=== PATIENT | male | born 1955 | race Caucasian/White ===

== ENCOUNTER 2017-09-14 05:54 | Observation (INO) | payer SELFPAY ==
[2017-09-14 07:25] LABS: BASO # 0.06 K/mm3 (0.0-2.0); BASO % 0.6 % (0.0-3.0); EOS # 0.5 (0.0-0.7); EOS % 4.4 % (1.5-5.0); GRAN # 6.99 (1.4-6.5); GRAN % 64.1 % (50.0-68.0); HEMATOCRIT 45.6 % (42.0-52.0); LYMPH # 2.5 (1.2-3.4); LYMPH % 23.3 % (22.0-35.0); MEAN CELL VOLUME 80.6 fl (80.0-105.0); MEAN CORPUSCULAR HEMOGLOBIN 27.4 pg (25.0-35.0); MEAN PLATELET VOLUME 10.5 fl (7.0-11.0); MONO # 0.8 (0.1-0.6); MONO % 7.6 % (1.0-6.0); RED CELL DISTRIBUTION WIDTH 14.3 % (11.5-14.5); WHITE BLOOD COUNT 10.9 10^3/ul (4.5-11.0)
--- NOTE | 2017-09-14 07:35 | ED PDOC ---
Arrival/HPI - General Chief Complaint: Dizziness/Lightheaded Time Seen by Provider: 09/14/17 07:34 Historian: Patient - History of Present Illness Narrative History of Present Illness (Text): 09/14/17 07:45 James Lopez is a 62 year old male, whose past medical history includes hypertension, and diabetes, who presents to the emergency department complaining of dizziness. Patient reports this symptoms began six days ago in the invasive physician, then resolved. Last night when he was going to the bathroom it returned, stating that he felt dizzy and "like I was going to pass out" and "like I couldn't get my words out". Patient also states he has had intermittent blurred vision. Denies headache. Denies chest pain or shortness of breath or abdominal pain. Time/Duration: < week (6 days ago) Symptom Onset: Sudden Symptom Course: Unchanged Activities at Onset: Rest Context: Home Past Medical History - Provider Review Nursing Documentation Reviewed: Yes - Cardiac Hx Cardiac Disorders: Yes Hx Hypertension: Yes - Pulmonary Hx Respiratory Disorders: No - Neurological Hx Neurological Disorder: Yes Hx Vertigo: Yes - HEENT Hx HEENT Disorder: No - Renal Hx Renal Disorder: No - Endocrine/Metabolic Hx Endocrine Disorders: Yes Hx Diabetes Mellitus Type 2: Yes - Hematological/Oncological Hx Blood Disorders: No - Integumentary Hx Dermatological Disorder: No - Musculoskeletal/Rheumatological Hx Musculoskeletal Disorders: No - Gastrointestinal Hx Gastrointestinal Disorders: No - Genitourinary/Gynecological Hx Genitourinary Disorders: No - Psychiatric Hx Psychophysiologic Disorder: No Hx Substance Use: No Family/Social History - Physician Review Nursing Documentation Reviewed: Yes Family/Social History: Unknown Family HX Smoking Status: Never Smoked Hx Alcohol Use: No Hx Substance Use: No Allergies/Home Meds Allergies/Adverse Reactions: Allergies No Known Allergies Allergy (Verified 09/14/17 06:02) Home Medications: Home Meds Medication Instructions Recorded Confirmed Aspirin [Adult Low Dose Aspirin EC] 81 mg PO DAILY 09/14/17 09/14/17 Atenolol [Tenormin] 50 mg PO DAILY 09/14/17 09/14/17 Diclofenac [Diclofenac Sodium] 100 mg PO PRN PRN 09/14/17 09/14/17 Metformin HCl [Glucophage] 1,000 mg PO DAILY 09/14/17 09/14/17 Nifedipine [Nifedipine ER] 20 mg PO DAILY 09/14/17 09/14/17 Prochlorperazine Maleate 5 mg PO BID 09/14/17 09/14/17 [Compazine] Simvastatin [Zocor] 40 mg PO DAILY 09/14/17 09/14/17 Review of Systems - Review of Systems Constitutional: absent: Fevers Eyes: Vision Changes Respiratory: absent: SOB Cardiovascular: absent: Chest Pain, [place] Gastrointestinal: absent: Abdominal Pain, Diarrhea, Nausea, Vomiting Genitourinary Male: absent: Dysuria Musculoskeletal: absent: Back Pain Neurological: Dizziness, Speech Changes. absent: Headache Endocrine: absent: Polydipsia Physical Exam - Physical Exam Narrative Physical Exam (Text): 09/14/17 Head: Atraumatic. Normocephalic. Eyes: PERRL. EOMI. Conjunctivae are not pale. ENT: Mucous membranes are moist and intact. Oropharynx is clear and symmetric. Neck: Supple. Full ROM. No JVD. No lymphadenopathy. No carotid bruits. Cardiovascular: Regular rate. Regular rhythm. No murmurs, rubs, or gallops. Distal pulses are 2+ and symmetric. Pulmonary/Chest: No evidence of respiratory distress. Clear to auscultation bilaterally. No wheezing, rales or rhonchi. Abdominal: Soft and non-distended. There is no tenderness. No rebound, guarding, or rigidity. No organomegaly. Good bowel sounds. Back: No CVA tenderness. Extremities: No edema. No cyanosis. No clubbing. Full range of motion in all extremities. No calf tenderness. Skin: Skin is warm and dry. No petechiae. No purpura. Neurological: Alert, awake, and oriented to person, place, time, and situation. Normal speech. Visual acuity and visual walton intact. No pronator drift. Steady gait. Reflexes intact. Motor and sensory itnact. Psychiatric: Good eye contact. Normal interaction, affect, and behavior. Vital Signs Reviewed: Yes Vital Signs Temp Pulse Resp BP Pulse Ox 09/14/17 11:00 98.6 F 80 18 118/86 99 09/14/17 09:00 79 18 129/79 99 09/14/17 07:38 77 18 141/89 99 09/14/17 06:00 98.3 F 83 16 145/94 H 99 Temperature: Afebrile Pulse: Regular Respiratory Rate: Normal Appearance: Positive for: Well-Appearing, Non-Toxic, Comfortable Pain Distress: None Mental Status: Positive for: Alert and Oriented X 3 Medical Decision Making ED Course and Treatment: 09/14/17 Impression: 62 year old male with dizziness. Differential Diagnosis included but are not limited to: Vertigo Plan: -- EKG -- Chest X-ray -- CT Head -- Labs -- Reassess and disposition Progress Notes: Patient on exam states dizziness resolved. No chest pain. No exertional symptoms. Currently dizziness not reproducible with head movements. No fever. He reports episode of feeling as if he may pass out, although currently not orthostatic. He describes brief episode this AM prior to arrival of having difficulty speaking, but this has resolved. Intermittent blurred vision reported , although patient is currently intact with her visual acuity and visual walton. 09/14/17 09:00 CT Head: Creator : Simon Cook MD FINDINGS: HEMORRHAGE: No intracranial hemorrhage. BRAIN: No mass effect or edema. No atrophy or chronic microvascular ischemic changes. VENTRICLES: Unremarkable. No hydrocephalus. CALVARIUM: Unremarkable. PARANASAL SINUSES: Mild to moderate maxillary sinuses mucosal thickening and mild ethmoidal and sphenoid sinuses mucosal thickening noted. MASTOID AIR CELLS: Unremarkable as visualized. No inflammatory changes. OTHER FINDINGS: None. IMPRESSION: Socu-zj-nmyzwhpm sinuses mucosal thickening. No evidence of acute intracranial hemorrhage intracranial collection mass effect or midline shift. 09/14/17 10:50 Chest X-ray: Creator : Simon Cook MD FINDINGS: LUNGS: No active pulmonary disease. PLEURA: No significant pleural effusion identified, no pneumothorax apparent. CARDIOVASCULAR: Normal. OSSEOUS STRUCTURES: No significant abnormalities. VISUALIZED UPPER ABDOMEN: Normal. OTHER FINDINGS: None. IMPRESSION: No active disease. Re-exam, no chest pain or headache. No focal deficits. Will admit to telemetry observation for neuro monitoring, eval for near syncope ? tia vs. vertigo. 09/14/17 17:23 - Lab Interpretations Lab Results: 09/14/17 07:05 09/14/17 07:30 Lab Results 09/14/17 07:30: Triglycerides 125, Cholesterol 160, LDL Cholesterol Direct 104, HDL Cholesterol 40 09/14/17 07:30: Sodium 138, Potassium 5.5 H, Chloride 100, Carbon Dioxide 28, Anion Gap 16, BUN 23 H, Creatinine 1.3, Est GFR ( Amer) > 60, Est GFR ( Non-Af Amer) 56, Random Glucose 185 H, Calcium 9.9, Total Bilirubin 0.9, AST 30 , ALT 43, Alkaline Phosphatase 96, Lactate Dehydrogenase 387, Total Creatine Kinase 136, Troponin I < 0.01, Total Protein 8.2, Albumin 4.7, Globulin 3.5, Albumin/Globulin Ratio 1.3 09/14/17 07:30: PT 11.8, INR 1.07, APTT 32.6 09/14/17 07:05: WBC 10.9, RBC 5.66, Hgb 15.5, Hct 45.6, MCV 80.6, MCH 27.4, MCHC 34.0, RDW 14.3, Plt Count 285, MPV 10.5, Gran % 64.1, Lymph % (Auto) 23.3, Potter % (Auto) 7.6 H, Eos % (Auto) 4.4, Baso % (Auto) 0.6, Gran # 6.99 H, Lymph # 2.5, Potter # 0.8 H, Eos # 0.5, Baso # 0.06 I have reviewed the lab results: Yes - RAD Interpretation Radiology Orders: 09/14/17 07:13 CXR [CHEST PORTABLE] [RAD] Stat 09/14/17 07:44 HEAD W/O CONTRAST [CT] Stat Invasive Physician: Radiologist - EKG Interpretation Interpreted by ED Physician: Yes Type: 12 lead EKG - Medication Orders Current Medication Orders: Aspirin (Ecotrin) 81 mg PO DAILY [facility] Atenolol (Tenormin) 50 mg PO DAILY [facility] Atorvastatin Calcium (Lipitor) 40 mg PO DIN [facility] Metformin HCl (Glucophage) 1,000 mg PO DAILY [facility] Nifedipine (Procardia Xl) 30 mg PO DAILY [facility] Prochlorperazine (Compazine Tab) 5 mg PO BID [facility] Discontinued Medications Aspirin (Aspirin Chewable) 81 mg PO STAT [facility] Stop: 09/14/17 10:32 Last Admin: 09/14/17 11:29 Dose: 81 mg NIHSS Scale ([place]) - How Severe is the Stoke Baseline Level of Consciousness: 0=Alert LOC to Questions: 0=Both comments correct LOC to commands: 0=Obeys both correctly Best Gaze: 0=Normal Visual: 0=No visual loss Facial: 0=Normal Motor Arm - Left: 0=No drift Motor Arm - Right: 0=No drift Motor Leg - Left: 0=No drift Motor Leg - Right: 0=No drift Limb Ataxia: 0=Absent Sensory: 0=Normal Best Language: 0=No aphasia Dysarthia: 0=Normal articulation Extinction & Inattention (Neglect): 0=Normal, no object Score: 0 Risk Level: No Stroke Risk rTPA Inclusion/Exclusion - Refusal of Treatment Patient Refused Treatment: Yes - Inclusion Criteria for Altepase Patient is 18 years or Older: Yes Time of Onset is Well Established to be Less Than 270 Minute Before Treatment Would Begin: No - Warning to TPA With Conditions Following Conditions Weighed Against Anticipated Benefit: Yes Condition: Stroke Serevity Too Mild, Rapid Improvement, Age Greater Than 75 years - Scribe Statement The provider has reviewed the documentation as recorded by the Scribe Marleny Jerry Provider Scribe Attestation: All medical record entries made by the Scribe were at my direction and personally dictated by me. I have reviewed the chart and agree that the record accurately reflects my personal performance of the history, physical exam, medical decision making, and the department course for this patient. I have also personally directed, reviewed, and agree with the discharge instructions and disposition. Disposition/Present on Arrival - Present on Arrival Any Indicators Present on Arrival: No History of DVT/PE: No History of Uncontrolled Diabetes: No Urinary Catheter: No History of Decub. Ulcer: No History Surgical Site Infection Following: None - Disposition Have Diagnosis and Disposition been Completed?: Yes Diagnosis: Dizziness, TIA (transient ischemic attack), Near syncope Disposition: HOSPITALIZED Disposition Time: 10:00 Patient Plan: Admission, Observation, Telemetry Condition: FAIR
[2017-09-14 08:00] LABS: ALB/GLOB RATIO 1.3 (1.1-1.8); ALKALINE PHOSPHATASE 96 U/L (38-126); ALT/SGPT 43 U/L (7-56); AST/SGOT 30 U/L (17-59); BILIRUBIN,TOTAL 0.9 mg/dL (0.2-1.3); BLOOD UREA NITROGEN 23 mg/dL (7-21); CALCIUM 9.9 mg/dL (8.4-10.5); CARBON DIOXIDE 28 mmol/L (21-33); CHLORIDE 100 mmol/L (98-107); GFR AFRICAN-AMERICAN > 60; GLUCOSE,RANDOM 185 mg/dL (70-110); INR 1.07 (0.93-1.08); PARTIAL THROMBOPLASTIN TIME 32.6 Seconds (25.1-36.5); POTASSIUM 5.5 mmol/L (3.6-5.0); SODIUM 138 mmol/L (132-148); TOTAL PROTEIN 8.2 g/dL (5.8-8.3)
[2017-09-14 08:29] LABS: TROPONIN I < 0.01 ng/mL
--- NOTE | 2017-09-14 08:29 | CT ---
PROCEDURE: CT HEAD WITHOUT CONTRAST. HISTORY: dizziness COMPARISON: None available. TECHNIQUE: Axial computed tomography images were obtained through the head/brain without intravenous contrast. Radiation dose: Total exam DLP = 775.01 mGy-cm. This CT exam was performed using one or more of the following dose reduction techniques: Automated exposure control, adjustment of the mA and/or kV according to patient size, and/or use of iterative reconstruction technique. FINDINGS: HEMORRHAGE: No intracranial hemorrhage. BRAIN: No mass effect or edema. No atrophy or chronic microvascular ischemic changes. VENTRICLES: Unremarkable. No hydrocephalus. CALVARIUM: Unremarkable. PARANASAL SINUSES: Mild to moderate maxillary sinuses mucosal thickening and mild ethmoidal and sphenoid sinuses mucosal thickening noted. MASTOID AIR CELLS: Unremarkable as visualized. No inflammatory changes. OTHER FINDINGS: None. IMPRESSION: Gtzo-[id number] sinuses mucosal thickening. No evidence of acute intracranial hemorrhage intracranial collection mass effect or midline shift.
--- NOTE | 2017-09-14 10:41 | RAD ---
HISTORY: Dizziness COMPARISON: No prior. FINDINGS: LUNGS: No active pulmonary disease. PLEURA: No significant pleural effusion identified, no pneumothorax apparent. CARDIOVASCULAR: Normal. OSSEOUS STRUCTURES: No significant abnormalities. VISUALIZED UPPER ABDOMEN: Normal. OTHER FINDINGS: None. IMPRESSION: No active disease.
[2017-09-14 12:14] VITALS: BMI 26.6
[2017-09-14 12:24] LABS: CHOLESTEROL 160 mg/dL (130-200)
--- NOTE | 2017-09-14 16:38 | CP.PCM.HP ---
<Kamran Lee - Last Filed: 09/15/17 04:18> History of Present Illness - History of Present Illness History of Present Illness: Patient is a 62 year old male visiting from [facility] with past medical history of hypertension, NIDDM, vertigo who presents to [facility] on 1216 with complaints of dizziness which started on Friday. Patient states he was initially going to go to the ED that day but the next morning it had subsided. However he states that later that afternoon on 09/08/17 his symptoms returned. Throughout the night he states it worsened noticeably when he awoke to use the bathroom. As he was walking he felt he was going to pass out and fell to the ground but was able to break his fall and prevent head injury with his hands. Throughout the week patient continued to experience the dizziness. Dizziness is noted to be exacerbated when laying down, moving head side to side when changing positions throughout sleep, with especially the left side. Patient admits to occasional blurry vision, one episode of diarrhea throughout the course of the week as well as nausea. Denies vomiting, fevers, chills, weakness, cough, shortness of breath, chest pain, cough. PMD: [place]verseas ([facility]) Past Surgical history: None Past medical history: stated above Medications: Metformin 1000 qD, Dymacol 60 mg ER qD, Atenolol 50 mg qD, Amphetamine 20 mg qD, Aspirin 81 mg qD, Stemetil 5mg BID Family history: non-contributory Allergies: :NKDA Present on Admission - Present on Admission Any Indicators Present on Admission: Yes Review of Systems - Constitutional Constitutional: absent: Anorexia, Chills, Fever, Malaise, Weight Loss - EENT Eyes: Blurred Vision, Change in Vision. absent: Decreased Night Vision, Diplopia Ears: absent: Ear Discharge, Ear Pain Nose/Mouth/Throat: absent: Nasal Congestion, Nasal Discharge - Cardiovascular Cardiovascular: absent: Chest Pain, Leg Edema - Respiratory Respiratory: absent: Dyspnea, Wheezing - Gastrointestinal Gastrointestinal: absent: Belching, Bloating - Genitourinary Genitourinary: absent: Difficulty Urinating, Dysuria - Musculoskeletal Musculoskeletal: absent: Atrophy, Deformity, Joint Swelling - Integumentary Integumentary: absent: Acne, Alopecia - Neurological Neurological: absent: Abnormal Hearing, Abnormal Movements, Burning Sensations - Psychiatric Psychiatric: absent: Anxiety, Confusion - Endocrine Endocrine: absent: Fatigue, Flushing - Hematologic/Lymphatic Hematologic: absent: Easy Bleeding, Easy Bruising Past Patient History - Past Social History Smoking Status: Never Smoked - CARDIAC Hx Cardiac Disorders: Yes Hx Hypertension: Yes - PULMONARY Hx Respiratory Disorders: No - NEUROLOGICAL Hx Neurological Disorder: Yes - HEENT Hx HEENT Problems: No - RENAL Hx Chronic Kidney Disease: No - ENDOCRINE/METABOLIC Hx Endocrine Disorders: Yes Hx Diabetes Mellitus Type 2: Yes - HEMATOLOGICAL/ONCOLOGICAL Hx Blood Disorders: No - INTEGUMENTARY Hx Dermatological Problems: No - MUSCULOSKELETAL/RHEUMATOLOGICAL Hx Falls: No - GASTROINTESTINAL Hx Gastrointestinal Disorders: No - GENITOURINARY/GYNECOLOGICAL Hx Genitourinary Disorders: No - PSYCHIATRIC Hx Psychophysiologic Disorder: No Hx Substance Use: No - SURGICAL HISTORY Hx Surgeries: No Meds Allergies/Adverse Reactions: Allergies Allergy/AdvReac Type Severity Reaction Status Date / Time No Known Allergies Allergy Verified 09/14/17 06:02 Physical Exam - Constitutional Appears: Non-toxic, In Acute Distress - Head Exam Head Exam: ATRAUMATIC, NORMAL INSPECTION, NORMOCEPHALIC - Eye Exam Eye Exam: EOMI, Normal appearance Pupil Exam: NORMAL ACCOMODATION - ENT Exam ENT Exam: Mucous Membranes Moist, Normal Exam - Neck Exam Neck exam: Positive for: Full Rom, Normal Inspection. Negative for: Lymphadenopathy, Tenderness - Respiratory Exam Respiratory Exam: Clear to Auscultation Bilateral, NORMAL BREATHING PATTERN. absent: Rhonchi, Wheezes, Stridor - Cardiovascular Exam Cardiovascular Exam: REGULAR RHYTHM, +S1, +S2 - GI/Abdominal Exam GI & Abdominal Exam: Normal Bowel Sounds, Soft - Extremities Exam Extremities exam: Positive for: normal inspection. Negative for: calf tenderness, pedal pulses present - Back Exam Back exam: FULL ROM. absent: rash noted - Neurological Exam Neurological exam: Alert, CN II-XII Intact, Oriented x3 Additional comments: Didier-halllpike positive - negative focal neurological deficits - Psychiatric Exam Psychiatric exam: Normal Affect, Normal Mood - Skin Skin Exam: Intact, Normal Color, Warm Results - Vital Signs Recent Vital Signs: Last Vital Signs Temp 98.6 F 09/14/17 12:09 Pulse 53 L 09/14/17 14:00 Resp 18 09/14/17 12:09 BP 118/86 09/14/17 12:09 Pulse Ox 99 09/14/17 11:00 - Labs Result Diagrams: 09/14/17 07:05 09/14/17 07:30 Assessment & Plan - Assessment and Plan (Free Text) Assessment: 62 year old male past medical history of hypertension, vertigo, NIDDM presenting with Vertigo Plan: 1. Dizziness due to BPPV vs. Orthostatic Hypotension vs. Valvular etiology - Prochloperazine - CT head reveals no abnormalities - Carotid US ordered - Dalton-Hallpike positive - Instructed on Deangelo maneuver - Orthostatics - Echocardiogram - Neurology consulted - Neuro checks, aspiration precautions, elevate head of bed 2. Hypertension - Atenolol - Nifedipine - BP stable, continue to monitor 3. NIDDM - Metformin - HgA1c ordered - ISS DVT/GI prophylaxis SCDs/Pepcid Case reviewed and discussed with Dr. Hayden <Michael Hayden - Last Filed: 09/17/17 12:32> Results - Vital Signs Recent Vital Signs: Last Vital Signs Temp 98.9 F 09/16/17 12:00 Pulse 63 09/16/17 14:00 Resp 20 09/16/17 12:00 BP 135/85 09/16/17 12:00 Pulse Ox 93 L 09/16/17 05:54 - Labs Result Diagrams: 09/15/17 05:30 09/15/17 05:30 Attending/Attestation - Attestation I have personally seen and examined this patient.: Yes I have fully participated in the care of the patient.: Yes I have reviewed all pertinent clinical information: Yes Notes (Text): 09/17/17 12:29 62 year old male with past medical history of hypertension and diabetes who presented with complaint of dizziness; likely BPPV. CT head was reviewed. Neurology and PT evaluations are requested. Will also check carotid dopplers and echocardiogram. Continue with home medications for hypertension and diabetes. Michael Hayden MD Hospitalist.
[2017-09-15 06:31] LABS: BASO # 0.06 K/mm3 (0.0-2.0); BASO % 0.7 % (0.0-3.0); EOS # 0.4 (0.0-0.7); EOS % 4.5 % (1.5-5.0); GRAN # 3.96 (1.4-6.5); GRAN % 46.2 % (50.0-68.0); HEMATOCRIT 45.8 % (42.0-52.0); LYMPH # 3.2 (1.2-3.4); LYMPH % 37.8 % (22.0-35.0); MEAN CELL VOLUME 81.3 fl (80.0-105.0); MEAN CORPUSCULAR HGB CONC 33.2 g/dl (31.0-37.0); MONO # 0.9 (0.1-0.6); MONO % 10.8 % (1.0-6.0); RED CELL DISTRIBUTION WIDTH 14.4 % (11.5-14.5); WHITE BLOOD COUNT 8.6 10^3/ul (4.5-11.0)
[2017-09-15 06:49] LABS: ALB/GLOB RATIO 1.3 (1.1-1.8); ALKALINE PHOSPHATASE 89 U/L (38-126); ALT/SGPT 36 U/L (7-56); AST/SGOT 27 U/L (17-59); BILIRUBIN,TOTAL 0.9 mg/dL (0.2-1.3); BLOOD UREA NITROGEN 24 mg/dL (7-21); CALCIUM 9.6 mg/dL (8.4-10.5); CARBON DIOXIDE 27 mmol/L (21-33); CHLORIDE 104 mmol/L (98-107); GFR AFRICAN-AMERICAN > 60; GLUCOSE,RANDOM 128 mg/dL (70-110); SODIUM 141 mmol/L (132-148); TOTAL PROTEIN 7.7 g/dL (5.8-8.3)
[2017-09-15 06:57] LABS: POTASSIUM 4.2 mmol/L (3.6-5.0)
--- NOTE | 2017-09-15 08:59 | US ---
PROCEDURE: Bilateral carotid artery duplex ultrasound HISTORY: Carotid stenosis dizziness PHYSICIAN(S): Ghassan Herrera MD. TECHNIQUE: Duplex sonography and color-flow Doppler were used to evaluate the carotid bifurcations and limited segments of the vertebral arteries bilaterally. FINDINGS: There is mild smooth heterogeneous plaque noted at the carotid bifurcations bilaterally. The peak systolic velocity in the proximal right internal carotid artery is 72 cm/sec. This corresponds to a 20 to 39% proximal right ICA stenosis. Normal systolic velocities are noted in the proximal right external carotid artery. There is antegrade flow in the right vertebral artery. The peak systolic velocity in the proximal left internal carotid artery is 89 cm/sec. This corresponds to a 20 to 39% proximal left ICA stenosis. Normal systolic velocities are noted in the proximal left external carotid artery. There is antegrade flow in the left vertebral artery. IMPRESSION: 1. Bilateral 20-39% proximal ICA stenoses. 2. Antegrade flow in both vertebral arteries.
[2017-09-15] MEDS: NIFEdipine 30 mg ER Tab PO SCH (09:29)
[2017-09-15] MEDS ORDERED: NIFEdipine 30 mg ER Tab PO SCH (10:00)
--- NOTE | 2017-09-15 10:20 | CARD ---
APPROVED REPORT EKG Measurement Heart [id number] <Conclusion> Normal sinus rhythm Possible Left atrial enlargement Right bundle branch block Left anterior fascicular block Bifascicular block Abnormal ECG
[2017-09-15] MEDS ORDERED: Iodixanol 320 MG/ML 100 ML BOTTLE IV ONE (11:39)
--- NOTE | 2017-09-15 12:46 | CT ---
PROCEDURE: CT Angiography of the neck with contrast HISTORY: syncope COMPARISON: None available. TECHNIQUE: Contiguous axial images of the neck were obtained from the level of the skull-base to the superior mediastinum in the arteriographic phase of enhancement. Coronal and sagittal reformats or also generated. IV contrast dose: 100 cc of Visipaque Radiation Dose - DLP: 498 mGy-cm This CT exam was performed using one or more of the following dose reduction techniques: Automated exposure control, adjustment of the mA and/or kV according to patient size, and/or use of iterative reconstruction technique. FINDINGS: RIGHT CAROTID ARTERIES: Common Carotid Artery: Normal. Carotid Bifurcation: Small calcified plaques Internal Carotid Artery:Normal. External Carotid Artery (proximal branches): Normal. LEFT CAROTID ARTERIES: Common Carotid Artery: Normal. Carotid Bifurcation: Small calcified plaques Internal Carotid Artery:Normal. External Carotid Artery (proximal branches): Normal. VERTEBRAL ARTERIES: Right Vertebral Artery: Normal. Left Vertebral Artery: Normal. OTHER FINDINGS: None. IMPRESSION: Normal CT Angiography of the neck. PROCEDURE: CT Angiography of the Brain. HISTORY: syncope COMPARISON: None available. TECHNIQUE: CT angiography of the intracranial arteries was performed. Coronal and sagittal maximum intensity projection reformated images were generated. This CT exam was performed using one or more of the following dose reduction techniques: Automated exposure control, adjustment of the mA and/or kV according to patient size, and/or use of iterative reconstruction technique. FINDINGS: INTERNAL CEREBRAL ARTERIES: Unremarkable. The skull base, petrous, cavernous and supraclinoid segments are bilaterally widely patent. ANTERIOR CEREBRAL ARTERIES: Unremarkable. A1 and A2 segments are widely patent. Smaller distal branches unremarkable, as visualized. MIDDLE CEREBRAL ARTERIES: Unremarkable. M1 and M2 segments are widely patent. Perisylvian branches grossly symmetric. POSTERIOR CIRCULATION: Basilar Artery: Unremarkable. Distal Vertebral Arteries: Unremarkable. Posterior Cerebral Arteries: Unremarkable. Posterior Inferior Cerebellar Arteries: Unremarkable. ANEURYSM/ VASCULAR MALFORMATIONS: None. OTHER FINDINGS: There is opacification of the right maxillary sinus and mucosal thickening in the left maxillary IMPRESSION: Unremarkable CT Angiography of the Brain.
--- NOTE | 2017-09-15 13:19 | CP.PCM.CON ---
History of Present Illness - History of Present Illness History of Present Illness: Mr. Lopez is a 62-year-old man with a past medical history of hypertension, NIDDM and previous episodes of vertigo who presented to the ED complaining of dizziness, nausea and feeling unsteady with head movement to the left. He states that he feels unsafe due to these feelings of spinning very quickly that also come on when he is driving. He denies hearing loss, tinnitus, fullness in the ears, loss of consciousness or syncope. He denied having gait instability, weakness or sensory changes. He denied any visual changes. Review of Systems - Review of Systems All systems: reviewed and no additional remarkable complaints except Past Patient History - Past Social History Smoking Status: Never Smoked - CARDIAC Hx Cardiac Disorders: Yes Hx Hypertension: Yes - PULMONARY Hx Respiratory Disorders: No - NEUROLOGICAL Hx Neurological Disorder: Yes - HEENT Hx HEENT Problems: No - RENAL Hx Chronic Kidney Disease: No - ENDOCRINE/METABOLIC Hx Endocrine Disorders: Yes Hx Diabetes Mellitus Type 2: Yes - HEMATOLOGICAL/ONCOLOGICAL Hx Blood Disorders: No - INTEGUMENTARY Hx Dermatological Problems: No - MUSCULOSKELETAL/RHEUMATOLOGICAL Hx Falls: No - GASTROINTESTINAL Hx Gastrointestinal Disorders: No - GENITOURINARY/GYNECOLOGICAL Hx Genitourinary Disorders: No - PSYCHIATRIC Hx Psychophysiologic Disorder: No Hx Substance Use: No - SURGICAL HISTORY Hx Surgeries: No Meds Allergies/Adverse Reactions: Allergies Allergy/AdvReac Type Severity Reaction Status Date / Time No Known Allergies Allergy Verified 09/14/17 06:02 - Medications Medications: Current Medications Aspirin (Ecotrin) 81 mg PO DAILY [facility] Last Admin: 09/15/17 09:28 Dose: 81 mg Atenolol (Tenormin) 50 mg PO DAILY [facility] Last Admin: 09/15/17 09:29 Dose: 50 mg Atorvastatin Calcium (Lipitor) 40 mg PO DIN [facility] Famotidine (Pepcid) 20 mg PO 1000,2200 [facility] Last Admin: 09/15/17 09:28 Dose: 20 mg Metformin HCl (Glucophage) 1,000 mg PO DAILY [facility] Last Admin: 09/15/17 09:28 Dose: 1,000 mg Nifedipine (Procardia Xl) 30 mg PO DAILY [facility] Last Admin: 09/15/17 09:29 Dose: 30 mg Prochlorperazine (Compazine Tab) 5 mg PO BID [facility] Last Admin: 09/15/17 09:28 Dose: 5 mg Physical Exam - Constitutional Appears: Well - Head Exam Head Exam: ATRAUMATIC, NORMAL INSPECTION, NORMOCEPHALIC - Eye Exam Eye Exam: EOMI, Normal appearance, PERRL - ENT Exam ENT Exam: Mucous Membranes Moist, Normal Exam - Neck Exam Neck exam: Positive for: Normal Inspection - Respiratory Exam Respiratory Exam: Clear to Auscultation Bilateral, NORMAL BREATHING PATTERN - Cardiovascular Exam Cardiovascular Exam: REGULAR RHYTHM, +S1, +S2 - GI/Abdominal Exam GI & Abdominal Exam: Normal Bowel Sounds, Soft. absent: Tenderness - Rectal Exam Rectal Exam: Deferred - Neurological Exam Neurological exam: Alert, CN II-XII Intact, Normal Gait, Oriented x3, Reflexes Normal Additional comments: Left side beating nystagmus on left lateral gaze. - Psychiatric Exam Psychiatric exam: Normal Affect, Normal Mood - Skin Skin Exam: Dry, Intact, Normal Color, Warm Results - Vital Signs Recent Vital Signs: Last Vital Signs Temp 98.2 F 09/15/17 12:00 Pulse 65 09/15/17 12:00 Resp 20 09/15/17 12:00 BP 131/88 09/15/17 12:00 Pulse Ox 97 09/15/17 06:00 - Labs Result Diagrams: 09/15/17 05:30 09/15/17 05:30 Labs: Laboratory Results - last 24 hr 09/14/17 09/14/17 09/15/17 16:39 21:45 02:22 WBC RBC Hgb Hct MCV MCH MCHC RDW Plt Count MPV Gran % Lymph % (Auto) Hardee % (Auto) Eos % (Auto) Baso % (Auto) Gran # Lymph # Hardee # Eos # Baso # Sodium Potassium Chloride Carbon Dioxide Anion Gap BUN Creatinine Est GFR ( Amer) Est GFR (Non-Af Amer) POC Glucose (mg/dL) 129 H 87 181 H Random Glucose Calcium Total Bilirubin AST ALT Alkaline Phosphatase Total Protein Albumin Globulin Albumin/Globulin Ratio 09/15/17 09/15/17 09/15/17 05:30 05:30 07:25 WBC 8.6 D RBC 5.63 Hgb 15.2 Hct 45.8 MCV 81.3 MCH 27.0 MCHC 33.2 RDW 14.4 Plt Count 272 MPV 10.0 Gran % 46.2 L Lymph % (Auto) 37.8 H Hardee % (Auto) 10.8 H Eos % (Auto) 4.5 Baso % (Auto) 0.7 Gran # 3.96 Lymph # 3.2 Hardee # 0.9 H Eos # 0.4 Baso # 0.06 Sodium 141 Potassium 4.2 Chloride 104 Carbon Dioxide 27 Anion Gap 14 BUN 24 H Creatinine 1.3 Est GFR ( Amer) > 60 Est GFR (Non-Af Amer) 56 POC Glucose (mg/dL) 129 H Random Glucose 128 H Calcium 9.6 Total Bilirubin 0.9 AST 27 ALT 36 Alkaline Phosphatase 89 Total Protein 7.7 Albumin 4.3 Globulin 3.4 Albumin/Globulin Ratio 1.3 Assessment & Plan (1) Benign paroxysmal positional vertigo Assessment and Plan: Based on the history and exam, the patient has BPPV. I recommend the followin. Vestibular therapy 2. CTA of the head/neck to rule out VBI 3. Telemetry 4. Valium 2 mg Q12 for symptomatic relief PRN 5. PT/OT 6. Fluids 7. MRI of the brain without contrast Thank you. Status: Acute Priority: High
[2017-09-15] MEDS ORDERED: levETIRAcetam 500mg IVPB 500 MG/100 ML BAG IV SCH (13:30)
--- NOTE | 2017-09-15 15:23 | CP.PCM.DIS ---
<Chip Handley - Last Filed: 09/16/17 15:42> Provider - Provider Date of Admission: 09/14/17 10:32 Attending physician: Yves Kerr MD Primary care physician: NO PRIMARY CARE PROVIDER Consults: Neuro: Korya Time Spent in preparation of Discharge (in minutes): 45 Hospital Course - Lab Results Lab Results: Most Recent Lab Values WBC 8.6 10^3/ul (4.5-11.0) D 09/15/17 05:30 RBC 5.63 10^6/uL (3.5-6.1) 09/15/17 05:30 Hgb 15.2 g/dL (14.0-18.0) 09/15/17 05:30 Hct 45.8 % (42.0-52.0) 09/15/17 05:30 MCV 81.3 fl (80.0-105.0) 09/15/17 05:30 MCH 27.0 pg (25.0-35.0) 09/15/17 05:30 MCHC 33.2 g/dl (31.0-37.0) 09/15/17 05:30 RDW 14.4 % (11.5-14.5) 09/15/17 05:30 Plt Count 272 10^3/uL (120.0-450.0) 09/15/17 05:30 MPV 10.0 fl (7.0-11.0) 09/15/17 05:30 Gran % 46.2 % (50.0-68.0) L 09/15/17 05:30 Lymph % (Auto) 37.8 % (22.0-35.0) H 09/15/17 05:30 Miner % (Auto) 10.8 % (1.0-6.0) H 09/15/17 05:30 Eos % (Auto) 4.5 % (1.5-5.0) 09/15/17 05:30 Baso % (Auto) 0.7 % (0.0-3.0) 09/15/17 05:30 Gran # 3.96 (1.4-6.5) 09/15/17 05:30 Lymph # 3.2 (1.2-3.4) 09/15/17 05:30 Miner # 0.9 (0.1-0.6) H 09/15/17 05:30 Eos # 0.4 (0.0-0.7) 09/15/17 05:30 Baso # 0.06 K/mm3 (0.0-2.0) 09/15/17 05:30 PT 11.8 SECONDS (9.4-12.5) 09/14/17 07:30 INR 1.07 (0.93-1.08) 09/14/17 07:30 APTT 32.6 Seconds (25.1-36.5) 09/14/17 07:30 Sodium 141 mmol/L (132-148) 09/15/17 05:30 Potassium 4.2 mmol/L (3.6-5.0) 09/15/17 05:30 Chloride 104 mmol/L (98-107) 09/15/17 05:30 Carbon Dioxide 27 mmol/L (21-33) 09/15/17 05:30 Anion Gap 14 (10-20) 09/15/17 05:30 BUN 24 mg/dL (7-21) H 09/15/17 05:30 Creatinine 1.3 mg/dL (0.8-1.5) 09/15/17 05:30 Est GFR ( Amer) > 60 09/15/17 05:30 Est GFR (Non-Af Amer) 56 09/15/17 05:30 POC Glucose (mg/dL) 217 mg/dL (65-110) H 09/15/17 11:13 Random Glucose 128 mg/dL (70-110) H 09/15/17 05:30 Hemoglobin A1c 7.1 % (4.2-6.5) H 09/14/17 07:30 Calcium 9.6 mg/dL (8.4-10.5) 09/15/17 05:30 Total Bilirubin 0.9 mg/dL (0.2-1.3) 09/15/17 05:30 AST 27 U/L (17-59) 09/15/17 05:30 ALT 36 U/L (7-56) 09/15/17 05:30 Alkaline Phosphatase 89 U/L (38-126) 09/15/17 05:30 Lactate Dehydrogenase 387 U/L (333-699) 09/14/17 07:30 Total Creatine Kinase 136 U/L (35-230) 09/14/17 07:30 Troponin I < 0.01 ng/mL 09/14/17 07:30 Total Protein 7.7 g/dL (5.8-8.3) 09/15/17 05:30 Albumin 4.3 g/dL (3.0-4.8) 09/15/17 05:30 Globulin 3.4 gm/dL 09/15/17 05:30 Albumin/Globulin Ratio 1.3 (1.1-1.8) 09/15/17 05:30 Triglycerides 125 mg/dL (35-160) 09/14/17 07:30 Cholesterol 160 mg/dL (130-200) 09/14/17 07:30 LDL Cholesterol Direct 104 mg/dL (0-129) 09/14/17 07:30 HDL Cholesterol 40 mg/dL (29-60) 09/14/17 07:30 - Hospital Course Hospital Course: Patient is a 62 year old male visiting from [facility] with past medical history of hypertension, NIDDM, vertigo who presented with complaint of dizziness which started on Friday. Pt states that dizziness had intermittent through the day prior to admission. He stated that when he was at home he felt he was going to pass out and fell to the ground but was able to break his fall and prevent head injury with his hands. Dizziness is noted to be exacerbated when laying down, moving head side to side when changing positions throughout sleep, with especially the left side. Patient admits to occasional blurry vision , one episode of diarrhea throughout the course of the week as well as nausea. Examination was significant for nystagmus on radha hallpike test. Pt was admitted for evaluation and possible treatment for dizziness. Carotid US was negative. Orthostatics were negative. CT head showed mild-to- moderate mucosal thickening, but no acute disease process. CTA of head and neck was negative. Preliminary echocardiogram reading showed LVEF >70%. HgbA1C was 7.1%. Lipid panel was WNL. Due to negative workup, patient was cleared from neurology standpoint. Today, the patient was seen and examined at bedside. Pt denied any further episodes of dizziness. As other etiologies were ruled out and patient had positive Radha-Hallpike test, the diagnosis of BPPV was made. Pt was advised to have outpatient MRI performed. PT recommended that the patient could be discharged home and perform self Deangelo maneuver if further episodes of dizziness occurs. The patient was also given an rx for Meclizine as needed for dizziness. The patient was discharged and advised to follow up with PMD within 1 week for further management of his dizziness and to adjust DM medications due to elevated HgbA1c finding. Discharge Exam - Head Exam Head Exam: ATRAUMATIC, NORMAL INSPECTION, NORMOCEPHALIC - Eye Exam Eye Exam: EOMI, Normal appearance, Nystagmus (on radha hallpike exam), PERRL - ENT Exam ENT Exam: Mucous Membranes Moist, Normal Exam - Neck Exam Neck exam: Full Rom - Respiratory Exam Respiratory Exam: Clear to PA & Lateral. absent: Accessory Muscle Use, Rales, Rhonchi, Wheezes, Respiratory Distress - Cardiovascular Exam Cardiovascular Exam: RRR, +S1, +S2. absent: Diastolic murmur, Gallop, Rubs, Systolic Murmur - GI/Abdominal Exam GI & Abdominal Exam: Soft. absent: Distended, Guarding, Mass, Normal Bowel Sounds, Rebound, Tenderness - Extremities Exam Extremities exam: normal inspection - Back Exam Back exam: NORMAL INSPECTION - Neurological Exam Neurological exam: Alert, Oriented x3 - Psychiatric Exam Psychiatric exam: Normal Affect, Normal Mood - Skin Skin Exam: Dry, Intact, Normal Color, Warm Discharge Plan - Discharge Medications Prescriptions: Meclizine [Meclizine*] 25 mg PO Q6 #30 tab - Follow Up Plan Condition: FAIR Disposition: HOME/ ROUTINE Instructions: Vertigo (DC), Syncope (DC) Additional Instructions: 1. Follow up with PMD within 1 week 2. Would recommend outpatient MRI 3. Do not take Metformin today, may resume metformin tomorrow 4. Hemoglobin A1C was 7.1%, which is too high. Diabetes medications need to be adjusted per PMD. 5. Perform self Deangelo's maneuver as instructed by PT if dizzy 6. Use Meclizine as prescribed if dizziness persists 7. Resume other medications as prescribed 8. Return to ED if symptoms worsen Referrals: PCP,NO [Primary Care Provider] - Mayo Parish MD [Staff Provider] - <Yves Kerr - Last Filed: 09/16/17 17:57> Provider - Provider Date of Admission: 09/14/17 10:32 Attending physician: Yves Kerr MD Primary care physician: NO PRIMARY CARE PROVIDER Hospital Course - Lab Results Lab Results: Most Recent Lab Values WBC 8.6 10^3/ul (4.5-11.0) D 09/15/17 05:30 RBC 5.63 10^6/uL (3.5-6.1) 09/15/17 05:30 Hgb 15.2 g/dL (14.0-18.0) 09/15/17 05:30 Hct 45.8 % (42.0-52.0) 09/15/17 05:30 MCV 81.3 fl (80.0-105.0) 09/15/17 05:30 MCH 27.0 pg (25.0-35.0) 09/15/17 05:30 MCHC 33.2 g/dl (31.0-37.0) 09/15/17 05:30 RDW 14.4 % (11.5-14.5) 09/15/17 05:30 Plt Count 272 10^3/uL (120.0-450.0) 09/15/17 05:30 MPV 10.0 fl (7.0-11.0) 09/15/17 05:30 Gran % 46.2 % (50.0-68.0) L 09/15/17 05:30 Lymph % (Auto) 37.8 % (22.0-35.0) H 09/15/17 05:30 Miner % (Auto) 10.8 % (1.0-6.0) H 09/15/17 05:30 Eos % (Auto) 4.5 % (1.5-5.0) 09/15/17 05:30 Baso % (Auto) 0.7 % (0.0-3.0) 09/15/17 05:30 Gran # 3.96 (1.4-6.5) 09/15/17 05:30 Lymph # 3.2 (1.2-3.4) 09/15/17 05:30 Miner # 0.9 (0.1-0.6) H 09/15/17 05:30 Eos # 0.4 (0.0-0.7) 09/15/17 05:30 Baso # 0.06 K/mm3 (0.0-2.0) 09/15/17 05:30 PT 11.8 SECONDS (9.4-12.5) 09/14/17 07:30 INR 1.07 (0.93-1.08) 09/14/17 07:30 APTT 32.6 Seconds (25.1-36.5) 09/14/17 07:30 Sodium 141 mmol/L (132-148) 09/15/17 05:30 Potassium 4.2 mmol/L (3.6-5.0) 09/15/17 05:30 Chloride 104 mmol/L (98-107) 09/15/17 05:30 Carbon Dioxide 27 mmol/L (21-33) 09/15/17 05:30 Anion Gap 14 (10-20) 09/15/17 05:30 BUN 24 mg/dL (7-21) H 09/15/17 05:30 Creatinine 1.3 mg/dL (0.8-1.5) 09/15/17 05:30 Est GFR ( Amer) > 60 09/15/17 05:30 Est GFR (Non-Af Amer) 56 09/15/17 05:30 POC Glucose (mg/dL) 178 mg/dL (65-110) H 09/16/17 11:59 Random Glucose 128 mg/dL (70-110) H 09/15/17 05:30 Hemoglobin A1c 7.1 % (4.2-6.5) H 09/14/17 07:30 Calcium 9.6 mg/dL (8.4-10.5) 09/15/17 05:30 Total Bilirubin 0.9 mg/dL (0.2-1.3) 09/15/17 05:30 AST 27 U/L (17-59) 09/15/17 05:30 ALT 36 U/L (7-56) 09/15/17 05:30 Alkaline Phosphatase 89 U/L (38-126) 09/15/17 05:30 Lactate Dehydrogenase 387 U/L (333-699) 09/14/17 07:30 Total Creatine Kinase 136 U/L (35-230) 09/14/17 07:30 Troponin I < 0.01 ng/mL 09/14/17 07:30 Total Protein 7.7 g/dL (5.8-8.3) 09/15/17 05:30 Albumin 4.3 g/dL (3.0-4.8) 09/15/17 05:30 Globulin 3.4 gm/dL 09/15/17 05:30 Albumin/Globulin Ratio 1.3 (1.1-1.8) 09/15/17 05:30 Triglycerides 125 mg/dL (35-160) 09/14/17 07:30 Cholesterol 160 mg/dL (130-200) 09/14/17 07:30 LDL Cholesterol Direct 104 mg/dL (0-129) 09/14/17 07:30 HDL Cholesterol 40 mg/dL (29-60) 09/14/17 07:30 Attending/Attestation - Attestation I have personally seen and examined this patient.: Yes I have fully participated in the care of the patient.: Yes I have reviewed all pertinent clinical information, including history, physical exam and plan: Yes Notes (Text): 09/16/17 17:54 Patient was seen and examined with medical lab scientist. Agreed with resident assessment and plan. 62 yrs old male was admitted with Benign Positional vertigo, symptoms are improved.Work up is nehative for any central cause (CT scan of head and CTA of head and neck is negative for any acute pathology).Patient is ambulatory.He was evaluated by Physical therapy and was cleared for discharge.He will follow up with his PCP and Neurology. Management plan was discussed in detail with patient Education was provided.
--- NOTE | 2017-09-15 16:24 | CP.PCM.PN ---
<Chip Handley - Last Filed: 09/15/17 20:39> Subjective - Date & Time of Evaluation Date of Evaluation: 09/15/17 Time of Evaluation: 13:05 - Subjective Subjective: Medicine Progress Note: Pt seen and examined at bedside. Pt denied any acute overnight events. Pt states that his dizziness has resolved. Pt denied CP, SOB, nausea, vomiting, diarrhea, fever, chills, abdominal pain, NEWELL, or fatigue. Objective - Vital Signs/Intake and Output Vital Signs (last 24 hours): Temp Pulse Resp BP Pulse Ox 98.2 F 67 20 131/88 97 09/15/17 12:00 09/15/17 14:00 09/15/17 12:00 09/15/17 12:00 09/15/17 06:00 Intake and Output: 09/15/17 09/15/17 06:59 18:59 Intake Total 360 Balance 360 - Medications Medications: Current Medications Aspirin (Ecotrin) 81 mg PO DAILY [facility] Last Admin: 09/15/17 09:28 Dose: 81 mg Atenolol (Tenormin) 50 mg PO DAILY [facility] Last Admin: 09/15/17 09:29 Dose: 50 mg Atorvastatin Calcium (Lipitor) 40 mg PO DIN [facility] Diazepam (Valium) 2 mg PO Q12 [facility] PRN Reason: Protocol Famotidine (Pepcid) 20 mg PO 1000,2200 [facility] Last Admin: 09/15/17 09:28 Dose: 20 mg Metformin HCl (Glucophage) 1,000 mg PO DAILY [facility] Last Admin: 09/15/17 09:28 Dose: 1,000 mg Nifedipine (Procardia Xl) 30 mg PO DAILY [facility] Last Admin: 09/15/17 09:29 Dose: 30 mg Prochlorperazine (Compazine Tab) 5 mg PO BID [facility] Last Admin: 09/15/17 09:28 Dose: 5 mg - Labs Labs: 09/15/17 05:30 09/15/17 05:30 PT 11.8 SECONDS (9.4-12.5) 09/14/17 07:30 INR 1.07 (0.93-1.08) 09/14/17 07:30 APTT 32.6 Seconds (25.1-36.5) 09/14/17 07:30 - Constitutional Appears: No Acute Distress - Head Exam Head Exam: ATRAUMATIC, NORMAL INSPECTION, NORMOCEPHALIC - Eye Exam Eye Exam: EOMI, Normal appearance, PERRL - ENT Exam ENT Exam: Mucous Membranes Moist, Normal Exam - Neck Exam Neck Exam: Full ROM, Normal Inspection. absent: Lymphadenopathy, Tenderness, Thyromegaly - Respiratory Exam Respiratory Exam: Clear to Ausculation Bilateral. absent: Accessory Muscle Use , Rales, Rhonchi, Wheezes, Respiratory Distress - Cardiovascular Exam Cardiovascular Exam: RRR, +S1, +S2. absent: Gallop, Rubs, Murmur - GI/Abdominal Exam GI & Abdominal Exam: Soft. absent: Distended, Guarding, Tenderness, Mass, Rebound - Extremities Exam Extremities Exam: Normal Inspection - Back Exam Back Exam: NORMAL INSPECTION - Neurological Exam Neurological Exam: Alert, Awake, Oriented x3 - Psychiatric Exam Psychiatric exam: Normal Affect, Normal Mood - Skin Skin Exam: Dry, Intact, Normal Color, Warm Assessment and Plan - Assessment and Plan (Free Text) Assessment: 62 year old male past medical history of hypertension, vertigo, NIDDM presenting with Vertigo Plan: 1. BPPV - Prochloperazine - CT head reveals no abnormalities - CTA head/neck negative rules out vertebrobasilar insufficiency - Carotid US negative - Didier-Hallpike positive - Instructed on Deangelo maneuver - Orthostatics negative - Echocardiogram showed EF >70% - Neurology consulted Vestibular therapy Valium 2 mg Q12 for symptomatic relief PRN MRI of the brain without contrast 2. Hypertension - Atenolol - Nifedipine - BP stable, continue to monitor 3. NIDDM - Metformin - HgA1c 7.1% - Advised patient importance of medication and diet compliance - f/u with PMD for blood glucose control - ISS DVT/GI prophylaxis SCDs/Pepcid Case reviewed and discussed with Dr. Cirilo Handley, PGY1 <Yves Kerr - Last Filed: 09/16/17 13:51> Objective - Vital Signs/Intake and Output Vital Signs (last 24 hours): Temp Pulse Resp BP Pulse Ox 98.9 F 66 20 135/85 93 L 09/16/17 12:00 09/16/17 12:00 09/16/17 12:00 09/16/17 12:00 09/16/17 05:54 Intake and Output: 09/16/17 09/16/17 06:59 18:59 Intake Total 300 Balance 300 - Medications Medications: Current Medications Aspirin (Ecotrin) 81 mg PO DAILY [facility] Last Admin: 09/16/17 09:09 Dose: 81 mg Atenolol (Tenormin) 50 mg PO DAILY [facility] Last Admin: 09/16/17 09:10 Dose: 50 mg Atorvastatin Calcium (Lipitor) 40 mg PO DIN [facility] Last Admin: 09/15/17 17:18 Dose: 40 mg Diazepam (Valium) 2 mg PO Q12 [facility] PRN Reason: Protocol Last Admin: 09/16/17 09:10 Dose: 2 mg Famotidine (Pepcid) 20 mg PO 1000,2200 [facility] Last Admin: 09/16/17 09:09 Dose: 20 mg Metformin HCl (Glucophage) 1,000 mg PO DAILY [facility] Last Admin: 09/16/17 09:12 Dose: Not Given Nifedipine (Procardia Xl) 30 mg PO DAILY [facility] Last Admin: 09/16/17 09:10 Dose: 30 mg Prochlorperazine (Compazine Tab) 5 mg PO BID [facility] Last Admin: 09/16/17 09:08 Dose: 5 mg - Labs Labs: 09/15/17 05:30 09/15/17 05:30 PT 11.8 SECONDS (9.4-12.5) 09/14/17 07:30 INR 1.07 (0.93-1.08) 09/14/17 07:30 APTT 32.6 Seconds (25.1-36.5) 09/14/17 07:30 Attending/Attestation - Attestation I have personally seen and examined this patient.: Yes I have fully participated in the care of the patient.: Yes I have reviewed all pertinent clinical information, including history, physical exam and plan: Yes Notes (Text): 09/16/17 13:48 Patient was seen and examined with medical claims processor. Agreed with resident assessment and plan. 62 year old male past medical history of hypertension, NIDDM presenting with Vertigo, etiology is likely Benign Positional vertigo. Work up CT head ,CTA of head and neck is negative for any central causes.Patient symptoms are improved, Patient is awaiting for MRI of Brain which was ordered by Neurology, can go home if MRI of brain is normal. Management plan was discussed in detail with patient Education was provided.
--- NOTE | 2017-09-15 20:50 | CARD ---
APPROVED REPORT EXAM: Two-dimensional and M-mode echocardiogram with Doppler and color Doppler. INDICATION DIZZINESS 2D DIMENSIONS Left Atrium (2D)3.1 (1.6-4.0cm)IVSd1.1 (0.7-1.1cm) LVDd4.4 (3.9-5.9cm)PWd1.1 (0.7-1.1cm) LVDs2.6 (2.5-4.0cm)FS (%) 39.7 % LVEF (%)70.5 (>50%) M-Mode DIMENSIONS Aortic Root3.00 (2.2-3.7cm)Aortic Cusp Exc.1.30 (1.5-2.0cm) Aortic Valve AoV Peak Uwkspndl503.0cm/Nate Peak GR.7mmHg Mitral Valve MV E Ucyfksvc32.8cm/sMV A Siaprleu77.4cm/sE/A ratio0.8 TDI E/Lateral E'0.0E/Medial E'0.0 Tricuspid Valve TR Peak [id number]/sRAP [id number] Peak Gr.16mmHg [id number] LEFT VENTRICLE The left ventricle is normal size. There is normal left ventricular wall thickness. The left ventricular function is normal. The left ventricular ejection fraction is within the normal range. There is normal LV segmental wall motion. Transmitral Doppler flow pattern is Grade I-abnormal relaxation pattern. RIGHT VENTRICLE The right ventricle is normal size. There is normal right ventricular wall thickness. The right ventricular systolic function is normal. ATRIA The left atrium size is normal. The right atrium size is normal. AORTIC VALVE The aortic valve is normal in structure. No aortic regurgitation is present. There is no aortic valvular stenosis. MITRAL VALVE The mitral valve is normal in structure. There is no mitral valve regurgitation noted. TRICUSPID VALVE The tricuspid valve is normal in structure. There is no tricuspid valve regurgitation noted. GREAT VESSELS The aortic root is normal in size. <Conclusion> The left ventricle is normal size. There is normal left ventricular wall thickness. The left ventricular function is normal. The left ventricular ejection fraction is within the normal range. There is normal LV segmental wall motion. Transmitral Doppler flow pattern is Grade I-abnormal relaxation pattern.
--- NOTE | 2017-09-15 23:15 | CARD ---
APPROVED REPORT EKG Measurement Heart [id number] <Conclusion> Normal sinus rhythm Right bundle branch block Left anterior fascicular block Bifascicular block Abnormal ECG
[2017-09-16 05:54] VITALS: O2SAT 93
--- NOTE | 2017-09-16 06:57 | CP.PCM.PN ---
Subjective - Date & Time of Evaluation Date of Evaluation: 09/16/17 Time of Evaluation: 06:54 - Subjective Subjective: Mr. Lopez was seen and examined at the bedside. He remains alert, oriented in all spheres. He claims of a restful night with no episodes of dizziness. He denies any headache, lightheadedness, nausea, vomiting, numbness, or weakness. There was no untoward events overnight. Objective - Vital Signs/Intake and Output Vital Signs (last 24 hours): Temp Pulse Resp BP Pulse Ox 97.7 F 67 19 103/57 L 93 L 09/16/17 05:54 09/16/17 05:54 09/16/17 05:54 09/16/17 05:54 09/16/17 05:54 Intake and Output: 09/15/17 09/16/17 18:59 06:59 Intake Total 720 300 Output Total 2 Balance 718 300 - Medications Medications: Current Medications Aspirin (Ecotrin) 81 mg PO DAILY REPLACED BY [facility] Last Admin: 09/15/17 09:28 Dose: 81 mg Atenolol (Tenormin) 50 mg PO DAILY REPLACED BY [facility] Last Admin: 09/15/17 09:29 Dose: 50 mg Atorvastatin Calcium (Lipitor) 40 mg PO DIN REPLACED BY [facility] Last Admin: 09/15/17 17:18 Dose: 40 mg Diazepam (Valium) 2 mg PO Q12 REPLACED BY [facility] PRN Reason: Protocol Last Admin: 09/15/17 21:18 Dose: 2 mg Famotidine (Pepcid) 20 mg PO 1000,2200 REPLACED BY [facility] Last Admin: 09/15/17 21:19 Dose: 20 mg Metformin HCl (Glucophage) 1,000 mg PO DAILY REPLACED BY [facility] Last Admin: 09/15/17 09:28 Dose: 1,000 mg Nifedipine (Procardia Xl) 30 mg PO DAILY REPLACED BY [facility] Last Admin: 09/15/17 09:29 Dose: 30 mg Prochlorperazine (Compazine Tab) 5 mg PO BID REPLACED BY [facility] Last Admin: 09/15/17 17:18 Dose: 5 mg - Labs Labs: 09/15/17 05:30 09/15/17 05:30 PT 11.8 SECONDS (9.4-12.5) 09/14/17 07:30 INR 1.07 (0.93-1.08) 09/14/17 07:30 APTT 32.6 Seconds (25.1-36.5) 09/14/17 07:30 - Constitutional Appears: No Acute Distress - Head Exam Head Exam: ATRAUMATIC - Neurological Exam Neurological Exam: Alert, Awake, CN II-XII Intact, Oriented x3 Neuro motor strength exam: Left Upper Extremity: 5, Right Upper Extremity: 5, Left Lower Extremity: 5, Right Lower Extremity: 5 Additional comments: Neurological improved from previous examination. Assessment and Plan (1) Benign paroxysmal positional vertigo Assessment & Plan: Case discussed with Dr. Parish, follow up MRI of the brain without contrast. Continue all current medical, physical, and occupational therapies. Status: Acute
[2017-09-16] MEDS: NIFEdipine 30 mg ER Tab PO SCH (09:10)
[2017-09-16 12:47] VITALS: BP 135/85; RESP 20; TEMP 98.9
[2017-09-16 14:48] VITALS: PULSE 63
== END 2017-09-16 16:35 | disposition home or self-care (01) ==
LOC: ED 05:54 → ERH 10:32 → 2RNO 12:12 → 3RSO 09-16 11:40
PROVIDERS: ADMIT Hospitalist; ATTEND Internal Medicine
DX: H81.10 Benign paroxysmal vertigo, unspecified ear (principal); I10 Essential (primary) hypertension; E11.9 Type 2 diabetes mellitus without complications; H55.00 Unspecified nystagmus; Z91.81 History of falling; Z79.84 Long term (current) use of oral hypoglycemic drugs; Z79.82 Long term (current) use of aspirin; Z79.899 Other long term (current) drug therapy
CPT/HCPCS: 36415; 70450; 70496; 70498; 71010; 80053; 80061; 82550; 82948; 83036; 83615; 84484; 85025; 85610; 85730; 93005; 93306; 93880; 97116; 97161; 99285; G0378; G8978; G8979; G8980; Q0164; Q9967